=== PATIENT | male | born 1955 | race African-American/Black ===

== ENCOUNTER 2020-11-04 07:59 | Outpatient (CLI) | payer MEDICARE, MEDICAID, SELFPAY ==
--- NOTE | 2020-11-04 08:58 | ECG_ITS ---
Measurements Intervals [place] Rate: 56 P: 22 ID: [id number] QRS: 49 QRSD: 89 T: 32 QT: 389 QTc: 377 Interpretive Statements SINUS BRADYCARDIA BASELINE ARTIFACT- I, II, III, AVR, AVL, AVF BORDERLINE ECG Electronically Signed On 11-04-2020 9:31:33 CDT by Leif Morgan D.O.
[2020-11-04 09:45] LABS: Eosinophils Absolute Auto 0.1 K/mm3 (0-0.3); Eosinophils Percent Auto 2.7 % (0-4.4); Hematocrit 46.3 % (42.0-52.0); Immature Granulocyte Absolute 0.01 K/mm3 (0.00-0.031); Immature Granulocyte Percent A 0.3 % (0-0.5); Lymphocytes Absolute Auto 1.48 K/mm3 (0.9-3.2); Lymphocytes Percent Auto 50.9 % (18.3-44.2); Mean Corpuscular HGB Conc 32.4 g/dl (32-36); Mean Corpuscular Hemoglobin 30.9 pg (26-34); Mean Corpuscular Volume 95.5 fl (80-100); Mean Platelet Volume 11.6 fl (7.4-10.4); Monocytes Absolute Auto 0.5 K/mm3 (0.1-0.6); Monocytes Percent Auto 15.5 % (2.6-8.5); Neutrophils Absolute Auto 0.9 K/mm3 (1.3-6.7); Neutrophils Percent Auto 29.6 % (45.5-73.1); Platelet Count Result 164 k/mm3 (150-375); Red Blood Count 4.85 M/mm3 (4.6-6.20); Red Cell Distribution Width 13.3 % (11.5-14.5); White Blood Count 2.9 K/mm3 (4.5-10.0)
[2020-11-04 09:53] LABS: Add Urine Microscopic? YES; Appearance Urine Clear (Clear); Bilirubin Urine Negative (Negative); Blood Urine Negative (Negative); Color Urine Yellow (Yellow); Glucose Urine UA Negative (Negative); Ketones Urine Negative (Negative); Leukocyte Esterase Ur Negative LEU/UL (Negative); Mucus Urine Rare /lpf; Nitrate Urine Negative (Negative); Protein Urine Negative (Negative); RBC Urine 0-2 /hpf (0-2); Squamous Epithelial Cell Urine Few /hpf (Few); WBC Urine 0-3 /hpf
[2020-11-04 10:03] LABS: INR 0.9; Partial Thromboplastin Time 30.1 SECONDS (22.3-36.8); Prothrombin Time 12.5 Seconds (11.1-14.7)
[2020-11-04 10:20] LABS: Urine Cotinine NEGATIVE
[2020-11-04 10:32] LABS: Albumin Level 4.3 g/dL (3.5-5.1); Anion Gap 6 mmol/L (8-16); Blood Urea Nitrogen 17 mg/dL (9-20); Calcium 9.4 mg/dL (8.4-10.2); Carbon Dioxide 29 mmol/L (22-30); Chloride 101 mmol/L (98-107); Estimated Glomerular Filt Rate > 60; Glucose 93 mg/dL (65-110); Sodium 136 mmol/L (137-145)
== END 2020-11-04 08:00 | disposition home or self-care (01) ==
PROVIDERS: PCP Emergency Medicine; Visit Provider Orthopaedic Surgery
DX: Z01.818 Encounter for other preprocedural examination (principal); M17.12 Unilateral primary osteoarthritis, left knee; R00.1 Bradycardia, unspecified; Z51.81 Encounter for therapeutic drug level monitoring; Z79.899 Other long term (current) drug therapy
CPT/HCPCS: 80048; 80307; 81001; 82040; 83036; 85025; 85610; 85730; 86850; 86900; 86901; 87081; 93005

== ENCOUNTER → 2020-11-08 00:26 | Outpatient (CLI) | payer MEDICARE, MEDICAID, SELFPAY ==
[2020-11-08 22:45] LABS: SARS-CoV-2 RNA PCR Negative
== END ==
PROVIDERS: PCP Emergency Medicine; Visit Provider Orthopaedic Surgery
DX: Z01.812 Encounter for preprocedural laboratory examination (principal); Z20.822 Contact with and (suspected) exposure to COVID-19
CPT/HCPCS: C9803; U0003; U0005

== ENCOUNTER 2020-11-12 00:47 | Day surgery (SDC) | payer MEDICARE, MEDICAID, SELFPAY ==
[2020-11-04 08:23] VITALS: BP 129/74; PULSE 62; RESP 18; TEMP 36.8; O2SAT 99; BMI 31.4
--- NOTE | 2020-11-11 10:24 | WPDANESEPPF ---
Anes - Initial Pre Proc Eval Procedure: Operation Date: 11/12/20 07:30 Proposed Procedures p Left Total Knee Arthroplasty(Left) - Arron Gonzalez MD Date/Time: 11/11/20 10:24 Surgeon: Arron Gonzalez MD Pre Op Diagnosis: left knee djd Patient Data Age: 65 Gender: M Height: 1.7 m Weight: 91.1 kg Last Vital Signs Temp 36.8 C 11/04/20 08:23 Pulse 62 11/04/20 08:23 Resp 18 11/04/20 08:23 BP 129/74 11/04/20 08:23 Pulse Ox 99 11/04/20 08:23 Allergies Allergy/AdvReac Type Severity Reaction Status Date / Time No Known Allergies Allergy Verified 11/12/20 06:19 Home Medications Medication Instructions Recorded Confirmed Type ascorbate calcium (vitamin C) 500 500 mg PO DAILY 09/11/20 11/12/20 History mg tablet aspirin 81 mg tablet,delayed 81 mg PO DAILY 09/11/20 11/12/20 History release metoprolol tartrate 50 mg tablet 50 mg PO QAM 09/11/20 11/12/20 History multivitamin 1 tablet PO DAILY 09/11/20 11/12/20 History ojc-usz-tcnaxpzn acid 1,000 1 ea PO .once a day ea 09/11/20 11/12/20 History mg-herbal 350 mg oral efferves powder pack rosuvastatin 5 mg PO DAILY 11/04/20 11/12/20 History Patient hx anesthesia problems: none Family hx anesthesia problems: none PMFSH Past Medical History Medical History (Updated 11/11/20 @ 10:25 by Andrea Diggs DO) Hyperlipidemia Hypertension Surgical History Surgical History H/O rotator cuff surgery History of ear, nose, and throat (ENT) surgery History of total right knee replacement Family History Family History Unknown Hypertension Heart disease Diabetes mellitus Breast cancer Other Family history of arthritis Family history of cardiovascular disease Family history of kidney disease Social History Social History Smoking packs per day: 1 Smoking cigarettes per day: 20.0 Years smoked: 5 Smoking pack-years: 5.00 Smoking status: Former smoker Tobacco type: cigarettes Smoking end date: 09/11/84 Alcohol intake: current Substance use: never Living arrangements: with family Additional living arrangements comments: Spiritual care concerns: No Anes - Eval Final PreProcedure Day of Procedure 11/11/20 10:24 Patient weight: obese Heart: regular rate and rhythm Lungs: clear to auscultation and normal air movement Airway: Mallampati scale class II Neurological: alert and oriented Last oral intake: >/= 8 hours ASA classification: III Emergent: no Anesthetic plan: proceed Anesthesia type and monitoring: general LMA and standard monitoring Informed Consent: The patient's anesthetic plan and its attendant risks and benefits were discussed with the patient/family/POA. Questions were solicited and answers provided to the satisfaction of the patient/family/POA.
--- NOTE | 2020-11-11 10:25 | WPDANESPNB ---
Anes - Peripheral Nerve Block Date/Time: 11/11/20 10:25 I have discussed with the patient/family/POA the placement of a peripheral nerve block for post-operative pain management, including associated risks, benefits, complications, and side effects. Alternative methods of post-operative analgesia were detailed. Questions were solicited and answers provided to the satisfaction of the patient/family/POA. Time-Out: A pre-procedural Time-Out was completed immediately before starting the procedure and confirmed: Patient Identification, Site, Procedure, Patient Position and the Availability of Requisite Equipment. Clinical Indications: Acute post-operative pain management requested by the operative surgeon. Nerve Block Insertion Note Anes-nerve block: adductor canal left Patient position: supine Skin prep: chlorhexidine Needle: 22 gauge, stimulating, insulated echogenic needle. Needle length: 80 mm Technique: ultrasound Injectate: bupivacaine 0.5% with epi 5 mcg/ml (30cc - no epi) Observations: tolerated well Complications: none Procedure start time:: 722 Procedure end time:: 726
[2020-11-12] VITALS (12 sets, daily range): BP systolic 114–181; BP diastolic 62–110; PULSE 52–90; RESP 10–16; TEMP 36.2; O2SAT 94–100
--- NOTE | ~2020-11-12 | XR_ITS ---
EXAMINATION: XR knee LT 2V DATE: 11/12/2020 10:28 INDICATION: Postoperative evaluation following left total knee arthroplasty. TECHNIQUE: Anteroposterior and lateral views of the left knee were obtained. COMPARISON: None. FINDINGS: Left total knee arthroplasty without patellar resurfacing appears well seated and in near anatomic al ignment. No fractures identified. Skin sriram and expected postoperative subcutaneous and intra-ar ticular gas. IMPRESSION: 1. Left total knee arthroplasty, negative for postoperative purposes. Reviewed, dictated and finalized at location A.
[2020-11-12] MEDS: ACETAMINOPHEN 500 MG TABLET 1000 MG PO (06:36)
[2020-11-12] MEDS: LACTATED RINGERS 1,000 ML 30 ML IV CONT ×2 (06:52→10:11)
[2020-11-12] MEDS: TRANEXAMIC ACID 1,000MG/ISO100 1,000 MG/100 ML BAG 200 MG IVPB (07:02)
--- NOTE | 2020-11-12 07:14 | WPDHPUPDATE1 ---
History and Physical Update Update Date/Time: 11/12/20 07:14 History and Physical has been reviewed, including an updated exam of the patient. There are NO changes in the patient's condition. Risks, benefits, and alternatives have been discussed and questions answered. Patient agrees to proceed with procedure.
[2020-11-12] MEDS: ceFAZolin 2 GM/D5W 50 ML 2 GM/50 ML BAG IVPB (07:23)
[2020-11-12] MEDS: GENTAMICIN BONE CEMENT REFOBACIN 1 EACH TOPICAL (08:48)
[2020-11-12] MEDS: TRANEXAMIC ACID 1,000 MG/10 ML AMPUL 1000 MG IV PUSH (09:21)
--- NOTE | 2020-11-12 10:24 | W.PM.PROC2 ---
Procedure Note - Detailed Date of Procedure 11/12/20 Pre-op Diagnosis left knee djd Post-op Diagnosis same Procedure Performed L TKA Surgeon Arron Gonzalez MD Anesthesia general Description of Procedure THE LEFT KNEE WAS PREPPED AND DRAPED IN THE STERILE FASHION. THERE WAS A 10 DEGREE FLEXION CONTRACTURE. A MIDLINE SKIN INCISION WAS MADE. A MEDIAL PARAPATELLAR ARTHROTOMY WAS MADE. THE PATELLA WAS EVERTED. THERE WAS TRICOMPARTMENT DJD. THERE WAS MINIMAL PATELLA DJD. AN INTRAMEDULLARY SITA WAS PLACED IN THE FEMUR. A DISTAL FEMORAL CUT WAS MADE IN 5 DEGREES OF VALGUS REMOVING APPROXIMATELY 9 MM OF BONE FROM THE DISTAL FEMUR. THE FEMUR WAS SIZED TO 67.5. A 67.5 FEMORAL CUTTING BLOCK WAS PLACED IN 3 DEGREES OF EXTERNAL ROTATION AND IN ALIGNMENT WITH CALI'S LINE AND THE TRANSEPICONDYLAR AXIS. ANTERIOR POSTERIOR AND CHAMFER CUTS WERE MADE. THE CUTS WERE EXCELLENT. NEXT AN INTRAMEDULLARY CUTTING GUIDE WAS PLACED IN THE TIBIA. A TRANS TIBIAL CUT WAS MADE ALONG THE LONG AXIS OF THE TIBIA. APPROXIMATELY 10 MM OF BONE WAS REMOVED FROM THE HIGH SIDE OF THE TIBIA. THE TIBIA WAS THEN PLANED TO A SMOOTH SURFACE. POSTERIOR FEMORAL OSTEOPHYTES WERE REMOVED FROM THE FEMORAL CONDYLES. A 75 TIBIAL TRIAL WAS PLACED IN ALIGNMENT WITH THE 1/3 MEDIAL ASPECT OF THE TIBIAL TUBERCLE. THEN A 67.5 FEMORAL TRIAL COMPONENT WAS PLACED. BOTH HAD EXCELLENT FITS. EVENTUALLY A 12 MM POLYETHYLENE TRIAL COMPONENT WAS PLACED. THE KNEE WAS TAKEN THROUGH A RANGE OF MOTION. THE KNEE CAME OUT TO FULL EXTENSION. THERE WAS NO ABNORMAL TILT TO THE PATELLA. THERE WAS GOOD A/P AND VARUS/VALGUS STABILITY. THERE WAS NO EXCESSIVE ROLL BACK WITH FLEXION. THE TRIAL COMPONENTS WERE REMOVED. THEN A 67.5 FEMORAL COMPONENT AND 75 TIBIAL COMPONENT WITH A 12 POLYETHYLENE COMPONENT WERE CEMENTED INTO PLACE. ONCE THE CEMENT WAS HARD THE KNEE WAS TAKEN THROUGH A ROM AGAIN AND FOUND TO BE STABLE WITH NO PATELLA TILT NO EXCESSIVE ROLL BACK WITH FLEXION AND GOOD STABILITY WITH COMPLETE AND FULL EXTENSION. THE KNEE WAS IRRIGATED WITH STERILE BETADINE AND WATER FOR ABOUT 3 MINUTES. THE BLEEDERS WERE CAUTERIZED. THE ARTHROTOMY WAS REPAIRED WITH NUMBER 1 VICRYL. THE SUB CUTANEOUS LAYER WITH 2-0 VICRYL AND THE SKIN WITH MARIELLA. THE WOUND WAS WASHED AND A STERILE DRESSING WAS APPLIED. PATIENT WAS EXTUBATED. Estimated Blood Loss -150.0 Pathology none sent Complications No immediate complications Condition stable Disposition PACU
[2020-11-12] MEDS: fentaNYL CITRATE INJ (*CRX) 100 MCG/2 ML VIAL 25 MCG IV PUSH ×4 (10:39→11:01)
[2020-11-12] MEDS: KETOROLAC 30 MG/ML VIAL (*BKC) IV PUSH (11:05)
[2020-11-12] MEDS: ONDANSETRON INJ 4 MG/2 ML VIAL IV PUSH (12:05)
--- NOTE | 2020-11-12 15:17 | SUR.PHASEII ---
PT DC HOME. DR MIR SAW PT AND APPROVED.
== END 2020-11-12 13:55 | disposition home or self-care (01) ==
PROVIDERS: PCP Emergency Medicine; Visit Provider Orthopaedic Surgery
PROC: (CPT 27447; principal; 2020-11-12 07:30)
DX: M17.12 Unilateral primary osteoarthritis, left knee (principal); G89.18 Other acute postprocedural pain; I10 Essential (primary) hypertension; E78.5 Hyperlipidemia, unspecified; Z79.82 Long term (current) use of aspirin; Z87.891 Personal history of nicotine dependence; E66.9 Obesity, unspecified; Z68.31 Body mass index [BMI] 31.0-31.9, adult
CPT/HCPCS: 27447; 64447; 73560; 97110; 97161; A9270; C1713; C1776; J0171; J0690; J1100; J1885; J2250; J2270; J2405; J2704; J2795; J3010; J3370; J7120

== ENCOUNTER 2022-08-06 09:43 | Outpatient (CLI) | payer MEDICARE, MEDICAID, SELFPAY ==
[2022-08-06 10:27] LABS: Hematocrit 45.6 % (42.0-52.0); Hemoglobin 15.1 g/dL (14.0-18.0); Mean Corpuscular HGB Conc 33.1 g/dl (32-36); Mean Corpuscular Hemoglobin 31.5 pg (26-34); Mean Platelet Volume 11.5 fl (7.4-10.4); Platelet Count Result 149 k/mm3 (150-375); Red Cell Distribution Width 13.4 % (11.5-14.5)
[2022-08-06 10:38] LABS: Prothrombin Time 13.2 Seconds (11.1-14.7)
[2022-08-06 10:50] LABS: White Blood Count 1.8 K/mm3 (4.5-10.0)
[2022-08-06 10:57] LABS: Alanine Aminotransferase 27 U/L (6-50); Albumin Level 4.6 g/dL (3.5-5.1); Alkaline Phosphatase 64 U/L (38-126); Anion Gap 5 mmol/L (8-16); Aspartate Amino Transferase 35 U/L (17-59); Bilirubin,Total 0.7 mg/dL (0.2-1.3); Blood Urea Nitrogen 19 mg/dL (9-20); Calcium 9.3 mg/dL (8.4-10.2); Carbon Dioxide 30 mmol/L (22-30); Chloride 104 mmol/L (98-107); Estimated Glomerular Filt Rate > 60; Glucose 108 mg/dL (65-110); Potassium 4.2 mmol/L (3.4-5.0); Sodium 139 mmol/L (137-145)
[2022-08-06 11:38] LABS: HAV RESULT Negative (Negative); Hepatitis B Core IgM Result Negative (Negative)
[2022-08-06 11:43] LABS: Hepatitis B Surface Antigen Negative (Negative)
[2022-08-06 11:49] LABS: Hepatitis B Surface Anti Res Negative
[2022-08-06 11:53] LABS: Hepatitis C Virus Antibody Reactive (Negative)
[2022-08-11 05:54] LABS: Hepatitis C RNA, Quant PCR <15 IU/mL
[2022-08-11 06:24] LABS: Hepatitis C Viral RNA PCR <15 IU/mL
[2022-08-14 03:17] LABS: Hepatitis A Antibody Total Nonreactive (Nonreactive)
[2022-08-19 14:47] LABS: ALT 17 U/L (9-46); Alpha-2-Macroglobulin 189 mg/dL (106-279); Apolipoprotein A1 217 mg/dL (94-176); Fibrosis Stage F0; GGT 15 U/L (3-70); Haptoglobin 61 mg/dL (43-212); Necroinflammat Act Grade A0; Total Bilirubin 0.6 mg/dL (0.2-1.2)
== END 2022-08-06 09:44 | disposition home or self-care (01) ==
LOC: ANHLAB 09:53
PROVIDERS: PCP Emergency Medicine; Visit Provider Nurse Practitioner
DX: D72.819 Decreased white blood cell count, unspecified (principal); R76.8 Other specified abnormal immunological findings in serum; K76.0 Fatty (change of) liver, not elsewhere classified; E66.9 Obesity, unspecified; Z85.46 Personal history of malignant neoplasm of prostate; Z96.652 Presence of left artificial knee joint
CPT/HCPCS: 36415; 80053; 80074; 81596; 85027; 85610; 86705; 86706; 86708; 87340; 87522

== ENCOUNTER 2022-08-17 10:08 | Outpatient (CLI) | payer MEDICARE, MEDICAID, SELFPAY ==
--- NOTE | ~2022-08-17 | US_ITS ---
Limited Abdominal Sonogram: Real-time sonographic imaging of the right upper quadrant was performed. Clinical History: Abnormal immunological findings Findings: The liver appears mildly echogenic, with no evidence of mass lesion or bile duct dilatatio n. Main portal vein demonstrates normal direction of flow. The gallbladder is well distended, and sydnee ears normal with no evidence of gallstone or wall thickening. The common bile duct measures 3 mm. Th e visualized pancreas, aorta, and IVC are unremarkable. Impression: Probable fatty infiltration of liver versus possibly other chronic liver disease. Correlate clinicall y. Reviewed, dictated and finalized at location M. Impression: Probable fatty infiltration of liver versus possibly other chronic liver diseas e. Correlate clinically.
== END 2022-08-17 10:09 | disposition home or self-care (01) ==
PROVIDERS: PCP Emergency Medicine; Visit Provider Nurse Practitioner
DX: K76.0 Fatty (change of) liver, not elsewhere classified (principal); D72.819 Decreased white blood cell count, unspecified; E66.9 Obesity, unspecified; R76.8 Other specified abnormal immunological findings in serum; Z85.46 Personal history of malignant neoplasm of prostate
CPT/HCPCS: 76705

== ENCOUNTER 2022-08-24 15:32 | Outpatient (CLI) | payer MEDICARE, MEDICAID, SELFPAY ==
[2022-08-24 15:46] LABS: Basophils Percent Auto 1.1 % (0.2-1.2); Eosinophils Absolute Auto 0.1 K/mm3 (0-0.3); Hematocrit 44.8 % (42.0-52.0); Lymphocytes Absolute Auto 1.02 K/mm3 (0.9-3.2); Lymphocytes Percent Auto 37.6 % (18.3-44.2); Mean Corpuscular HGB Conc 33.5 g/dl (32-36); Mean Corpuscular Hemoglobin 31.9 pg (26-34); Mean Corpuscular Volume 95.3 fl (80-100); Mean Platelet Volume 10.9 fl (7.4-10.4); Monocytes Absolute Auto 0.4 K/mm3 (0.1-0.6); Monocytes Percent Auto 13.7 % (2.6-8.5); Neutrophils Absolute Auto 1.2 K/mm3 (1.3-6.7); Neutrophils Percent Auto 44.6 % (45.5-73.1); Platelet Count Result 156 k/mm3 (150-375); Red Cell Distribution Width 13.3 % (11.5-14.5); White Blood Count 2.7 K/mm3 (4.5-10.0)
[2022-08-24 16:30] LABS: Iron 131 ug/dL (49-181)
[2022-08-24 16:34] LABS: Alanine Aminotransferase 25 U/L (6-50); Albumin Level 4.6 g/dL (3.5-5.1); Alkaline Phosphatase 62 U/L (38-126); Anion Gap 5 mmol/L (8-16); Aspartate Amino Transferase 27 U/L (17-59); Bilirubin,Total 0.6 mg/dL (0.2-1.3); Blood Urea Nitrogen 24 mg/dL (9-20); Calcium 9.2 mg/dL (8.4-10.2); Carbon Dioxide 32 mmol/L (22-30); Chloride 103 mmol/L (98-107); Estimated Glomerular Filt Rate > 60; Glucose 103 mg/dL (65-110); Lactate Dehydrogenase 161 U/L (120-246); Potassium 4.4 mmol/L (3.4-5.0); Sodium 140 mmol/L (137-145)
[2022-08-24 16:40] LABS: Percent Iron Saturation 41 % (20-50)
== END 2022-08-24 15:33 | disposition home or self-care (01) ==
LOC: ANHLAB 15:34
PROVIDERS: PCP Emergency Medicine; Visit Provider Internal Medicine Hematology & Oncology
DX: D64.9 Anemia, unspecified (principal)
CPT/HCPCS: 36415; 80053; 82728; 83540; 83550; 83615; 85025

== ENCOUNTER 2022-09-28 00:29 | Day surgery (SDC) | payer MEDICARE, MEDICAID, SELFPAY ==
[2022-09-17 14:17] VITALS: BMI 31.4
[2022-09-28 07:56] VITALS: BP 154/70; PULSE 69; RESP 20; TEMP 36.4; O2SAT 99
[2022-09-28] MEDS: LACTATED RINGERS 1,000 ML 150 ML IV CONT (08:06)
--- NOTE | 2022-09-28 08:38 | WPDANESEPPF ---
Anes - Initial Pre Proc Eval Procedure: Operation Date: 09/28/22 09:00 Proposed Procedures p Colonoscopy - Jl Ko MD Date/Time: 09/28/22 08:38 Surgeon: Jl Ko MD Pre Op Diagnosis: hx colon polyps Patient Data Age: 67 Gender: M Height: 1.7 m Weight: 88.6 kg Last Vital Signs Temp 97.6 F 09/28/22 07:56 Pulse 69 09/28/22 07:56 Resp 20 09/28/22 07:56 BP 154/70 H 09/28/22 07:56 Pulse Ox 99 09/28/22 07:56 O2 Del Method Room Air 09/28/22 07:56 Allergies Allergy/AdvReac Type Severity Reaction Status Date / Time No Known Allergies Allergy Verified 09/28/22 07:56 Home Medications Medication Instructions Recorded Confirmed Type ascorbate calcium (vitamin C) 500 500 mg PO DAILY 09/11/20 09/28/22 History mg tablet aspirin 81 mg tablet,delayed 81 mg PO DAILY 09/11/20 09/28/22 History release metoprolol tartrate 50 mg tablet 50 mg PO QAM 09/11/20 09/28/22 History multivitamin 1 tablet PO DAILY 09/11/20 09/28/22 History rosuvastatin 5 mg tablet 5 mg PO DAILY 11/04/20 09/28/22 History Patient hx anesthesia problems: none Family hx anesthesia problems: none Results Review: All pre-operative results and documents have been reviewed as part of the pre-operative evaluation. [facility] Past Medical History Medical History (Updated 08/06/22 @ 10:29 by Marissa Avalos APRN) Hepatic steatosis Hepatitis C antibody positive in blood Hx of colonic polyps Hx of diverticulitis of colon Hx of prostatic malignancy finished 45 rounds of radiation 11/2021 Hyperlipidemia Hypertension Leukopenia Obesity (BMI 30.0-34.9) Surgical History Surgical History H/O rotator cuff surgery History of ear, nose, and throat (ENT) surgery History of total right knee replacement Family History Family History Unknown Hypertension Heart disease Diabetes mellitus Breast cancer Other Family history of arthritis Family history of cardiovascular disease Family history of kidney disease Social History Social History Smoking packs per day: 1 Smoking cigarettes per day: 20.0 Years smoked: 5 Smoking pack-years: 5.00 Smoking status: Never smoker Tobacco type: cigarettes Smoking end date: 09/11/84 Alcohol intake: current Substance use: never Substance use type: does not use Living arrangements: other Additional living arrangements comments: With Spiritual care concerns: No Anes - Eval Final PreProcedure Day of Procedure 09/28/22 08:38 Patient weight: obese Heart: regular rate and rhythm Lungs: clear to auscultation Airway: Mallampati scale class II Neurological: alert and oriented Last oral intake: >/= 8 hours ASA classification: III Emergent: no Anesthetic plan: proceed Anesthesia type and monitoring: general GIVS and standard monitoring Results Review: All pre-operative results and documents have been reviewed as part of the pre-operative evaluation. Informed Consent: The patient's anesthetic plan and its attendant risks and benefits were discussed with the patient/family/POA. Questions were solicited and answers provided to the satisfaction of the patient/family/POA.
--- NOTE | 2022-09-28 08:38 | PM.HPGS ---
History of Present Illness History of Present Illness Consent: Risks, benefits, and alternatives have been discussed and questions answered. Patient agrees to proceed with procedure. Chief complaint: hx colon polyps Narrative: Davidson Tang is a 67 year old male here for colonoscopy, Hx of colon polyps in the past per last colonoscopy review -last colonoscopy with Dr. Haines in 2017 with diverticulosis and no polyps-recommended to repeat in 5 years Review of Systems Constitutional: Constitutional: Denies headache(s) and Denies weakness Eyes: Eyes: Denies blurry vision ENT: Reports Normal hearing present, Denies headache(s) and Denies neck pain Cardiovascular: Cardiovascular: Denies chest pain and Denies dyspnea Respiratory: Respiratory: Denies dyspnea Gastrointestinal: Gastrointestinal: Reports no additional gastrointestinal complaints Genitourinary: Genitourinary: Denies dysuria Musculoskeletal: Musculoskeletal: Denies neck pain Integumentary/Breasts: Skin/Breast: Denies dry skin Neurologic: Reports Normal hearing present, Denies headache(s) and Denies weakness Psychiatric: Psychiatric: Denies anxiety Endocrine: Endocrine: Denies change in body appearance Hematologic/Lymphatic: Hematologic/Lymphatic: Denies easy bleeding Allergic/Immunologic: Allergic/Immunologic: Denies urticaria [facility] Past Medical History Medical History (Updated 08/06/22 @ 10:29 by Marissa Avalos, CAR FRAMER) Hepatic steatosis Hepatitis C antibody positive in blood Hx of colonic polyps Hx of diverticulitis of colon Hx of prostatic malignancy finished 45 rounds of radiation 11/2021 Hyperlipidemia Hypertension Leukopenia Obesity (BMI 30.0-34.9) Surgical History Surgical History H/O rotator cuff surgery History of ear, nose, and throat (ENT) surgery History of total right knee replacement Family History Family History Unknown Hypertension Heart disease Diabetes mellitus Breast cancer Other Family history of arthritis Family history of cardiovascular disease Family history of kidney disease Social History Social History Smoking packs per day: 1 Smoking cigarettes per day: 20.0 Years smoked: 5 Smoking pack-years: 5.00 Smoking status: Never smoker Tobacco type: cigarettes Smoking end date: 09/11/84 Alcohol intake: current Substance use: never Substance use type: does not use Living arrangements: other Additional living arrangements comments: With Spiritual care concerns: No Meds Home Medications and Allergies Home Medications Medication Instructions Recorded Confirmed Type ascorbate calcium (vitamin C) 500 500 mg PO DAILY 09/11/20 09/28/22 History mg tablet aspirin 81 mg tablet,delayed 81 mg PO DAILY 09/11/20 09/28/22 History release metoprolol tartrate 50 mg tablet 50 mg PO QAM 09/11/20 09/28/22 History multivitamin 1 tablet PO DAILY 09/11/20 09/28/22 History rosuvastatin 5 mg tablet 5 mg PO DAILY 11/04/20 09/28/22 History Allergies Allergy/AdvReac Type Severity Reaction Status Date / Time No Known Allergies Allergy Verified 09/28/22 07:56 Vital Signs Vital Signs - 24 hr 09/28/22 07:56 Temperature 97.6 F Pulse Rate 69 Respiratory Rate 20 Blood Pressure 154/70 H Pulse Oximetry 99 Oxygen Delivery Room Air Exam Const: General: comfortable and no acute distress HENMT: Face/Nose/Sinus: Normal nares present Eyes: General: appearance normal, both eyes and all related structures Neck: Neck: no JVD Resp: Auscultation: clear to auscultation bilaterally Cardio: Rate: regular rate Rhythm: regular rhythm GI: Inspection: non-distended GI Palp: Yes Soft to palpation Skin: General skin exam: normal color Neuro: General: gait normal Speech: normal speech Extrem: Gen
[2022-09-28 08:59] VITALS: BP 107/70; PULSE 60; RESP 20; O2SAT 99
[2022-09-28 09:09] VITALS: BP 106/68; PULSE 57; RESP 20; O2SAT 100
[2022-09-28 09:19] VITALS: BP 117/77; PULSE 52; RESP 20; O2SAT 100
== END 2022-09-28 09:40 | disposition home or self-care (01) ==
PROVIDERS: PCP Emergency Medicine; Visit Provider Internal Medicine Gastroenterology
PROC: 0DJD8ZZ Inspection of Lower Intestinal Tract, Via Natural or Artificial Opening Endoscopic (ICD-10-PCS; CPT 45378; principal; 2022-09-28 09:00)
DX: Z12.11 Encounter for screening for malignant neoplasm of colon (principal); K64.8 Other hemorrhoids; K57.30 Diverticulosis of large intestine without perforation or abscess without bleeding; K55.20 Angiodysplasia of colon without hemorrhage; Z86.010 Personal history of colon polyps; R76.8 Other specified abnormal immunological findings in serum; E78.5 Hyperlipidemia, unspecified; I10 Essential (primary) hypertension; D72.819 Decreased white blood cell count, unspecified; E66.9 Obesity, unspecified; Z68.30 Body mass index [BMI] 30.0-30.9, adult; K76.0 Fatty (change of) liver, not elsewhere classified; Z87.891 Personal history of nicotine dependence; Z79.82 Long term (current) use of aspirin; Z85.46 Personal history of malignant neoplasm of prostate; Z92.3 Personal history of irradiation
CPT/HCPCS: G0105; J2704; J7120